=== PATIENT | female | born 1990 | race Caucasian/White ===

== ENCOUNTER → 2022-09-15 10:08 | Outpatient (CLI) | payer OTHER, SELFPAY ==
--- NOTE | 2022-09-15 | DI.US.S_ITS ---
PROCEDURE: US OB >= 14 WEEKS FETUS INDICATIONS: 20 week anatomy scan OUTSIDE/PRIOR DATING DATA: Last menstrual period (LMP): 04/30/22. LMP-based estimated date of delivery (GIORGIO): 02/04/23. First dating scan (date and location): None available. Estimated date of delivery (GIORGIO) from first dating scan: Not applicable. The calculations are made using the working GIORGIO of 02/04/23. TECHNIQUE: Real-time scanning was performed of the fetus, with image documentation and biometric measurements. Endovaginal scanning: Not performed COMPARISON: None. FINDINGS: General: A single living intrauterine gestation is present. Presentation: Vertex. Placenta: Placental position is posterior , and low lying. The placenta varies from a few mm to 1.1 cm from the internal cervical os. Amniotic fluid index: 8.6 cm, normal range is 5-24 cm. Single deepest vertical pocket is 2.3 cm. heart rate: 143 beats per minute. Maternal cervical canal: Closed and 3.9 cm long. Normal lower limit is 2.5 cm. biometrics: Biparietal diameter: 4.4 cm, 19 weeks two days Head circumference: 17.6 cm, 20 weeks 0 days Abdominal circumference: 14.5 cm, 19 weeks six days Femur length: 3.2 cm, 20 weeks one day Clinically estimated gestational age: 19 weeks five days Composite gestational age from present scan: 19 weeks six days Estimated weight and percentile: 322 g, 59th percentile Anatomic survey: Neuro: Ventricles are non-dilated at less than 10 mm. Cisterna magna is normal at 3-11 mm. Cerebellum is normal in size and morphology. Nuchal skin fold: Normal at less than 6 mm between 14-21 weeks gestational age. Face: Nose and lips, facial profile are normal. Spine: No evidence for spina bifida. Heart: 4-chambered heart is present, with normal ventricular outflow tracts. Diaphragm: Diaphragm is intact. Stomach: Left-sided stomach is present. Kidneys: No hydronephrosis. Normal is less than 5 mm in 2nd trimester, less than 7 mm in 3rd trimester. Cord: 3-vessel cord has orthotopic insertion. Bladder: Normal in size. Extremities: All 4 extremities identified. IMPRESSION: 1. Single live intrauterine with normal anatomy. 2. Symmetric and appropriate growth compared to clinical age. Estimated weight at the 59th percentile. 3. Posterior low-lying placenta. Follow-up in 3rd trimester is recommended. We strive to produce accurate, complete, and clear reports of imaging services. To assist us in improving patient care, this report was composed using standard report templates and voice recognition software. Therefore, it may contain abnormal punctuation, insertions and/or omissions. Occasional wrong-word or sound-alike substitutions may occur. Though we review the report and make efforts to correct it, we do recommend that the report be read carefully in proper context to recognize any text inaccuracies. Dictated by: Cuca Gomez M.D. on 09/15/2022 at 12:59 Approved by: Cuca Gomez M.D. on 09/15/2022 at 13:08
== END ==
PROVIDERS: Referring Provider Nurse Practitioner Obstetrics & Gynecology; Visit Provider Nurse Practitioner Obstetrics & Gynecology
DX: O44.42 Low lying placenta NOS or without hemorrhage, second trimester (principal); Z3A.19 19 weeks gestation of pregnancy
CPT/HCPCS: 76811

== ENCOUNTER → 2022-11-24 07:48 | Outpatient (CLI) | payer OTHER, SELFPAY ==
[2022-11-24 08:52] LABS: Glucose Fasting 90 mg/dL (70-100)
[2022-11-24 10:21] LABS: Glucose 1 Hour 122 mg/dL (70-170)
[2022-11-24 10:28] LABS: Glucose Tol Interpretation INTERPRETATION
[2022-11-24 11:20] LABS: Glucose 2 Hour 111 mg/dL (70-140)
== END ==
PROVIDERS: Referring Provider Advanced Practice Midwife; Visit Provider Advanced Practice Midwife
DX: O99.810 Abnormal glucose complicating pregnancy (principal)
CPT/HCPCS: 36415; 82951; 82952

== ENCOUNTER → 2022-12-22 09:40 | Outpatient (CLI) | payer OTHER, SELFPAY ==
--- NOTE | 2022-12-22 | DI.US.S_ITS ---
PROCEDURE: US OB LIMITED INDICATIONS: GROWTH AND PLACENTA LOCATION OUTSIDE/PRIOR DATING DATA: Last menstrual period (LMP): 04/30/2022. LMP-based estimated date of delivery (GIORGIO): 02/04/2023. TECHNIQUE: Real-time scanning was performed of the fetus, with image documentation and biometric measurements. Endovaginal scanning: Not performed COMPARISON: [facility], , OB >= 14 WEEKS FETUS, 09/15/2022, 10:22. FINDINGS: General: A single living intrauterine gestation is present. Presentation: Vertex. Placenta: Placental position is posterior. On documented images placental edge is difficult to identify. There is appearance of soft tissue interposed between calipers annotating possible placental edge and cervix area. Shadowing from anatomy present at the region labeled as suspected placental edge. Amniotic fluid index: 11.2 cm, normal range is 5-24 cm. Single deepest vertical pocket is 3.7 cm. heart rate: 145 beats per minute. Maternal cervical canal: 5.1 cm long. Normal lower limit is 2.5 cm. biometrics: Biparietal diameter: 8.3 cm 33 weeks 2 days Head circumference: 30.1 cm 33 weeks 3 days Abdominal circumference: 29.3 cm 33 weeks 2 days Femur length: 6.5 cm 33 weeks 2 days estimated gestational age: 33 weeks 5 days Composite gestational age from present scan: 33 weeks 2 days Estimated weight and percentile: 2174 g, 32nd percentile Other: Not applicable. IMPRESSION: 1. Single living intrauterine in vertex presentation. 2. Estimated weight at the 32nd percentile. 3. Placental edge difficult to identify on obtained images. Short interval follow-up recommended. We strive to produce accurate, complete, and clear reports of imaging services. To assist us in improving patient care, this report was composed using standard report templates and voice recognition software. Therefore, it may contain abnormal punctuation, insertions and/or omissions. Occasional wrong-word or sound-alike substitutions may occur. Though we review the report and make efforts to correct it, we do recommend that the report be read carefully in proper context to recognize any text inaccuracies. Dictated by: Arash Cosme M.D. on 12/22/2022 at 13:47 Approved by: Arash Cosme M.D. on 12/22/2022 at 13:59
== END ==
PROVIDERS: Referring Provider Advanced Practice Midwife; Visit Provider Advanced Practice Midwife
DX: O44.00 Complete placenta previa NOS or without hemorrhage, unspecified trimester (principal); Z3A.33 33 weeks gestation of pregnancy
CPT/HCPCS: 76815

== ENCOUNTER → 2023-01-05 08:49 | Outpatient (CLI) | payer OTHER, SELFPAY ==
--- NOTE | 2023-01-05 | DI.US.S_ITS ---
PROCEDURE: US OB FOLLOW UP INDICATIONS: PLACENTA LOCATION OUTSIDE/PRIOR DATING DATA: Last menstrual period (LMP): 04/30/22. LMP-based estimated date of delivery (GIORGIO): 02/04/23. First dating scan (date and location): Unknown. Estimated date of delivery (GIORGIO) from first dating scan: Not applicable. The calculations are made using the working GIORGIO of 02/04/23. TECHNIQUE: Real-time scanning was performed of the fetus, with image documentation. Endovaginal scanning: Not performed COMPARISON: None. FINDINGS: A single living intrauterine gestation is present. Presentation: Vertex Placenta: Placental position is posterior and fundal, without previa. Amniotic fluid index: 10.8 cm, normal range is 5-24 cm. Single deepest vertical pocket is 4.6 cm. heart rate: 126 beats per minute. Maternal cervical canal: Closed and 3.2 cm long. Normal lower limit is 2.5 cm. Clinically estimated gestational age: 35 weeks 5 days IMPRESSION: 1. Posterior placenta without previa on the given images. 2. Intrauterine in vertex presentation. 3. Closed cervix and normal amniotic fluid volume. Dictated by: Cuca Gomez M.D. on 01/05/2023 at 12:58 Approved by: Cuca Gomez M.D. on 01/05/2023 at 13:00
== END ==
PROVIDERS: Referring Provider Advanced Practice Midwife; Visit Provider Advanced Practice Midwife
DX: O44.03 Complete placenta previa NOS or without hemorrhage, third trimester (principal); Z3A.35 35 weeks gestation of pregnancy
CPT/HCPCS: 76816

== ENCOUNTER → 2023-01-28 19:45 | Outpatient (ROUT) | payer OTHER, SELFPAY ==
[2023-01-28 19:59] LABS: Hematocrit 39.9 % (36-46); Hemoglobin 13.4 g/dL (12.0-16.0); Mean Corpuscular HGB Conc 33.5 % (30-36); Mean Corpuscular Hemoglobin 30.7 PG (26-34); Mean Corpuscular Volume 91.4 fL (80-100); Platelet Count 208 X10^3/uL (150-400); Red Blood Cell Count 4.37 X10^6/uL (4.0-5.2); Red Cell Distribution Width 13.4 % (11.6-14.8); White Blood Cell Count 13.9 X10^3/uL (4.5-11.0)
[2023-01-28 20:16] LABS: Alanine Aminotransferase 23 IU/L (<35); Albumin 3.3 g/dL (3.5-5.0); Albumin Globulin Ratio 1.2 (1.0-2.8); Alkaline Phosphatase 152 U/L (38-126); Aspartate Aminotransferase 29 IU/L (14-36); Bilirubin Total 0.2 mg/dL (0.2-1.3); Blood Urea Nitrogen 11 mg/dL (7-17); Calcium 8.9 mg/dL (8.4-10.2); Carbon Dioxide 22 mmol/L (22-32); Chloride 103 mmol/L (98-107); Estimated Glomerular Filt Rate > 60 mL/min (>60); Globulin 2.8 g/dL (1.7-4.1); Glucose 53 mg/dL (70-100); HEMOLYSIS < 15 (0-50); Potassium 4.1 mmol/L (3.4-5.1); Sodium 135 mmol/L (137-145); Total Protein 6.1 g/dL (6.3-8.2); Uric Acid 5.4 mg/dL (2.5-6.2)
[2023-01-28 20:46] LABS: Creatinine Urine Random 119.4 mg/dL; Protein (Total) Urine Random 10 mg/dL (0-12); Protein Creatinine Ratio Urine 0.08 GRAM/24H
== END ==
PROVIDERS: Visit Provider Advanced Practice Midwife
DX: R03.0 Elevated blood-pressure reading, without diagnosis of hypertension (principal); Z34.93 Encounter for supervision of normal pregnancy, unspecified, third trimester
CPT/HCPCS: 80053; 82570; 84156; 84550; 85027

== ENCOUNTER → 2023-02-04 20:07 | Outpatient (ROUT) | payer OTHER, SELFPAY ==
[2023-02-04 20:25] LABS: Hematocrit 40.1 % (36-46); Hemoglobin 13.5 g/dL (12.0-16.0); Mean Corpuscular HGB Conc 33.7 % (30-36); Mean Corpuscular Hemoglobin 30.4 PG (26-34); Mean Corpuscular Volume 90.3 fL (80-100); Platelet Count 208 X10^3/uL (150-400); Red Blood Cell Count 4.44 X10^6/uL (4.0-5.2); White Blood Cell Count 15.8 X10^3/uL (4.5-11.0)
[2023-02-04 20:27] LABS: Add Manual Diff / Slide Review YES
[2023-02-04 20:28] LABS: Aspartate Aminotransferase 23 IU/L (14-36); BUN Creatinine Ratio 21.2 (6-22); Blood Urea Nitrogen 14 mg/dL (7-17); Estimated Glomerular Filt Rate > 60 mL/min (>60); Uric Acid 6.2 mg/dL (2.5-6.2)
[2023-02-04 20:57] LABS: Neutrophils Absolute Manual 13430 /uL (3000-5900); RBC Morphology Normal Morphology; Total Cells Counted 100
[2023-02-04 21:06] LABS: Creatinine Urine Random 222.8 mg/dL; Protein (Total) Urine Random 6 mg/dL (0-12); Protein Creatinine Ratio Urine 0.02 GRAM/24H
== END ==
PROVIDERS: Visit Provider Nurse Practitioner Obstetrics & Gynecology
DX: Z34.93 Encounter for supervision of normal pregnancy, unspecified, third trimester (principal); R03.0 Elevated blood-pressure reading, without diagnosis of hypertension
CPT/HCPCS: 82570; 84156; 84450; 84550; 85007; 85025

== ENCOUNTER 2023-02-05 07:17 | Inpatient (IN) | payer OTHER, SELFPAY ==
--- NOTE | 2023-02-05 | PATH_ITS ---
[facility] Accession Number: [id number] No. of containers..01 Tissue . 01 Material submitted: . placenta - PLACENTA . 01 Diagnosis: Placenta, Delivery: Mature george, partially fragmented placenta (348 grams). - Negative for villitis, thrombosis, infarction, and neoplasia. Eccentrically attached trivascular umbilical cord. - Negative for true knots, funisitis, and thrombosis. membranes negative for chorioamnionitis. MRV 02/16/2023 1710 Local . 01 Electronically signed: . Malathi Hensley MD, Pathologist NPI- [id number] . 01 Gross description: . The specimen is received in formalin labeled with the patient's name, , and no additional designation, and consists of an irregular-shaped george placenta with a trimmed weight of 348 g and measuring 19.4 x 15.3 x 1.4 cm with no accessory lobes identified. The membranes are mills and translucent with a slight green tint and no discoloration or thickening identified. They insert and are ruptured at the margin. The cord measures 71.8 cm in length by 1.2 cm in average diameter with a leftward coil and an index of approximately 1 twist per 5 cm. The cord inserts eccentrically 3.5 cm from the nearest placental disc edge. Sectioning reveals unremarkable trivascular architecture with no knots or lesions identified. The surface is blue-cardoza with a slight green tint, normal arborizing vasculature, and no discoloration or lesions identified. The maternal surface is ragged and grossly incomplete with the membranes visible from the maternal surface in an area measuring 3.5 x 2.2 cm. Several detached fragments of placenta are received within the container, aggregating to 5.3 x 4.1 x 2.0 cm. The presence of a complete maternal surface cannot be accurately determined. There are no lesions or discoloration identified. Sectioning reveals a pink-red, spongy cut surface with no discrete lesions or discoloration identified. [employer] sections are submitted as follows: A1: Membrane roll, placental end of cord, and central cord. A2: Membrane roll and end of cord. A3-A5: Central full-thickness plus normal sections. ([id number]) /FRR 02/07/2023 [facility] Local . 01 Pathologist provided ICD-10: O43.90 . 01 CPT . 172826 Specimen Comment: A courtesy copy of this report has been sent to [facility] Pathology Performed at: 01 [facility] [address] [place] [address], [place], [place] [id number] MD Gómez Kirkpatrick MD Phone: [phone]
[2023-02-05 07:36] VITALS: BP 140/83
--- NOTE | 2023-02-05 07:59 | P.HPOB_ITS ---
OB HPI Date/Time Date of admission: 02/05/23 Date Patient Seen: 02/05/23 Time Patient Seen: 07:30 History of Present Condition Chief complaint: induction : 1 Para: 0 Estimated Date of Delivery: 02/04/23 Estimated Gestational Age (weeks): 40.1 Narrative: Christopher Castillo is a 32 year old female at 40 weeks 1 day by sure LMP, concordant with 8 week US, here for IOL for gestational hypertension. She received uncomplicated care with CNM until diagnosis of gestational hypertension yesterday in clinic at 40 weeks 0 days. Serum labs and PCR were sent yesterday and are WNL. The hospital was not able to accommodate an induction yesterday due to staffing, however informed consent for IOL was obtained and a doll balloon was placed outpatient at 6pm 02/04/23. This morning Christopher reports feeling strong contractions for 2 hours overnight and then no more cramping. Upon admission, doll balloon sitting in vaginal vault. movement has been normal, she is having some bloody show, no leakage of fluids. She denies signs of pre-eclampsia with severe features; no headache, scotoma, RUQ or epigastric pain, N/V or new swelling. She is accompanied by her partner Rios. Indications Indication for induction OB: gestational HTN/pre-eclampsia History of Present care: good care, initiated at week # (8), number of visits (12) and pounds weight gain (29) Dating criteria: LMP confirmed by 1st trimester US Ultrasounds: normal 1st trimester US and normal mid trimester US Obstetrical complications: gestational hypertension Medical complications: none Preadmission Labs Blood type: A (+) positive -: Antibody screen: negative, GBS status: negative, HBsAG: negative, HIV: negative and RPR/VDLR: negative -: Chlamydia screen: not detected and Gonorrhea screen: not detected -: Rubella: immune and Varicella: immune HCT: 39.9 HCAB: negative PAP: Normal Cell-free DNA: Negative Narrative: 2hr glucose tolerance test: 90, 122, 111 Evaluation Evaluation Baseline heart rate: 130 Variability: Moderate (11-25) monitor accelerations: Present Monitor Decelerations: Absent Contraction Frequency (minutes): 0 Status: Category l Dilation (cm): 4.5 Effacement (%): 70 Dilation: 3-4 cm Effacement: 60-70% station: -3 Position of cervix: mid Consistency: soft Carrillo score: 7 PFSH Medical History Migraines Anxiety Depression Varicose veins of left calf Surgical History History of appendectomy Family History Mother Hypertension Depression Grandmother Cancer Grandfather Hypertension Father Depression Social History marital status: unmarried,living together household members: significant other occupational status: employed do you feel safe at home: Yes Smoking Status: Never smoker alcohol intake: former substance use type: does not use Meds Home Medications and Allergies Home Medications Medication Instructions Recorded Confirmed Type prenat.vits,kaitlin,noi-ncyr-pzbda 1 tab DAILY 02/05/23 02/05/23 History Allergies Allergy/AdvReac Type Severity Reaction Status Date / Time PENICILLIN Allergy Mild rash Uncoded 07/22/17 12:58 Review of Systems Review of Systems ROS: Yes All systems reviewed with the patient and are negative except as otherwise documented OB Exam Vital signs Blood Pressure: 140/83 Pulse Rate: 108 Temperature: 36.1 F Resp Effort & Inspection: normal respiratory effort Auscultation: clear to auscultation bilaterally Cardio Rate: regular rate Rhythm: regular rhythm Extremities DTR's: Rt Patellar: 3+ (No clonus) and Lt Patellar: 2+ (No clonus) Objective Labs 02/05/23 08:00 Labs: Pr:Cr- 0.02 AST- 23 Pre-E panel with Pr:Cr WNL yesterday (see preeclampsia panel in [employer] performed 02/04/23) Assessment and Plan Assessment and Plan Assessment and Plan narrative: A: Term nullipara Gestational hypertension IOL, cervix favorable for pitocin GBS prophylaxis NOT indicated Membranes intact FHR Cat 1 P: Admit to L&D Begin pitocin, per protocol Monitor BPs q2hrs Continuous monitoring Consulted Dr. Kelly, OB on-call; agrees with plan of care, will notify if BPs > or = 150s/100s or with any signs of Pre-E w/ SF Alternate rest and movement Next cervical exam after 2 hours of painful contractions
[2023-02-05 08:33] VITALS: BP 140/83; PULSE 108; TEMP 2.3; TEMP 36.1
[2023-02-05] MEDS: LACTATED RINGERS 1,000 ML 100 ML IV ×2 (08:40→13:35)
[2023-02-05 08:46] LABS: Add Manual Diff / Slide Review NO; Basophils Absolute Auto 0 /uL (0-100); Basophils Percent Auto 0.3 % (0-2); Eosinophils Absolute Auto 0 /uL (0-450); Eosinophils Percent Auto 0.3 % (2-4); Hematocrit 38.8 % (36-46); Hemoglobin 13.1 g/dL (12.0-16.0); Lymphocytes Absolute Auto 1400 /uL (1100-4500); Lymphocytes Percent Auto 10.1 % (25-40); Mean Corpuscular HGB Conc 33.9 % (30-36); Mean Corpuscular Hemoglobin 30.2 PG (26-34); Mean Corpuscular Volume 89.3 fL (80-100); Monocytes Absolute Auto 1200 /uL (0-900); Monocytes Percent Auto 8.2 % (3-14); Neutrophils Absolute Auto 11400 /uL (1500-7000); Neutrophils Percent Auto 81.1 % (50-75); Platelet Count 186 X10^3/uL (150-400); Red Blood Cell Count 4.35 X10^6/uL (4.0-5.2); Red Cell Distribution Width 13.7 % (11.6-14.8)
[2023-02-05] MEDS: OXYTOCIN PREMIX 30 UNIT/500 ML PLAST..BAG IV (09:01)
--- NOTE | 2023-02-05 12:03 | PM.OBPNLAB ---
Date/Time Date Patient Seen: 02/05/23 Time Patient Seen: 13:00 Pain Control Pain control: tolerating well Comments: VS - BP: 135/79mmHg, HR: 84 bpm, T: 36.2C, Sp02: 100% Christopher is moaning through strong, regular contractions. Has been laboring on hands and knees on the bed, leaning over the birthing ball, rocking and now on her side. Contractions got more intense around 11am with suspected SROM at 0845, clear fluid. Pitocin (max does 8mu/min) was decreased to 4mu/min for tachysystole and then turned off. Now requesting and epidural. CNM and student CNM have been providing continuous labor support. Pelvic Exam Dilation (cm): 6 Effacement (%): 80 station: -1 Amniotic membrane status: Ruptured (clear) Contractions Monitor mode: External Pitocin rate (mU/min): 0 Contraction frequency (min): 2 (1-3) Contraction duration (min): 1 Contraction pattern: Regular Contraction intensity: Moderate Status status: Category l Heart Rate Baseline: 125 Monitor Accelerations: Present Monitor Decelerations: Absent Monitor Variability: Moderate Assessment and Plan Assessment: induction ongoing Plan: continuous present management Comments: A: Term nullipara Gestational hypertension Active labor SROM Coping well FHR Cat 1 P: Epidural EDGAR Repeat CE after epidural placement and will consider restarting pitocin if indicated by contraction pattern. Reassess after epidural placement.
[2023-02-05] MEDS: ONDANSETRON 4 MG/2 ML INJ IV (13:23)
--- NOTE | 2023-02-05 13:50 | PM.ANES.PR ---
Operative Date/Time/Diagnoses Date of procedure: 02/05/23 Time of procedure: 13:24 Pre-op diagnosis: Labor pain Post-op diagnosis: same Note Patient is a requesting labor epidural for labor pain
--- NOTE | 2023-02-05 13:52 | PM.AN.REGBLK ---
[facility]ional [facility] Pre-procedure Procedure: Continuous Lumbar Epidural for L&D Attending OB provider: Francoise English PMH/ROS narrative: Patient is a requesting labor epidural for labor pain Hx: No personal or family history of anesthesia problems. Exam narrative: Mallampati: 2, good neck ROM ASA Class: II Labs: Hct 38.8 % (36-46) 02/05/23 08:00 Plt Count 186 X10^3/uL (150-400) 02/05/23 08:00 Medications: Current Medications Generic Name Dose Route Start Last Admin Trade Name Freq PRN Reason Stop Dose Admin Calcium Carbonate 1,000 mg 02/05/23 07:53 Calcium Carbonate 500 Mg Tab PO Q4HR PRN Dyspepsia Carboprost Tromethamine 250 mcg 02/05/23 07:53 Carboprost 250 Mcg/Ml Ampul IM Q90M PRN Bleeding Diphenhydramine HCl 25 mg 02/05/23 13:06 Diphenhydramine 50 Mg/Ml Vial IV Q10M PRN Pruritis Fentanyl 100 mcg 02/05/23 07:53 Fentanyl 100 Mcg/2 Ml Inj IV Q1H PRN Pain, Severe (7-10) Oxytocin/Lactated Ringer's 30 unit in 500 mls @ 200 mls/hr 02/05/23 07:53 Oxytocin Premix IV CONT PRN Bleeding Protocol Tranexamic Acid 1,000 mg/ 100 mls @ 200 mls/hr 02/05/23 07:53 Sodium Chloride IV NOW PRN Bleeding Oxytocin/Lactated Ringer's 30 unit in 500 mls @ 2 mls/hr 02/05/23 08:00 02/05/23 09:01 Oxytocin Premix IV 1 milliunit/min TITRATE IMTIAZ 1 mls/hr Administration Protocol 2 MILLIUNIT/MIN Lactated Ringer's 1,000 mls @ 100 mls/hr 02/05/23 08:00 02/05/23 13:35 Lactated Ringers IV 100 mls/hr CONT IMTIAZ Administration FENT 2MCG/ML BUPIV 0.1% EPI 200 mcg in 100 mls @ 6 mls/hr 02/05/23 13:15 Fentanyl/Bupiv/Ns 2mcg/Ml - 0.1% EPIDURAL CONT IMTIAZ Lidocaine HCl 20 ml 02/05/23 07:53 Lidocaine 1% 20 Ml INJ INTRA-OP PRN Post Delivery Methylergonovine Maleate 0.2 mg 02/05/23 07:53 Methylergonovine 0.2 Mg Tablet PO Q6HR PRN Heavy Bleeding Methylergonovine Maleate 0.2 mg 02/05/23 07:53 Methylergonovine 0.2 Mg/Ml Vial IM NOW PRN Bleeding Misoprostol 800 mcg 02/05/23 07:53 Misoprostol 200 Mcg Tablet UT NOW PRN Bleeding Misoprostol 400 mcg 02/05/23 07:53 Misoprostol 200 Mcg Tablet SL NOW PRN Bleeding Nalbuphine HCl 2.5 mg 02/05/23 13:06 Nalbuphine 20 Mg/Ml Ampul IV Q10M PRN Pruritis Naloxone HCl 0.2 mg 02/05/23 07:53 Naloxone 0.4 Mg/Ml Vial IV Q2MIN PRN Opiate Reversal Ondansetron HCl 4 mg 02/05/23 07:53 02/05/23 13:23 Ondansetron 4 Mg/2 Ml Inj IV 4 mg Q4HR PRN Administration Nausea And Vomiting Oxytocin 10 unit 02/05/23 07:53 Oxytocin 10 Unit/Ml Vial IM NOW PRN Bleeding Allergies: Allergies Allergy/AdvReac Type Severity Reaction Status Date / Time PENICILLIN Allergy Mild rash Uncoded 07/22/17 12:58 Procedure Insertion date: 02/05/23 Insertion time: 13:24 Prep/Local: 1% lidocaine (Sterile gloves, drape, prep with Chloroprep) Interspace: L4-5 Patient position: sitting Needle: 18 gauge Hustead Loss of resistance with: saline LOULOU at (cm): 6 Catheter placed at SKIN (cm): 11 Catheter in SPACE (cm): 5 Sensory level: T10 Insertion: No CSF, No Blood, No Paresthesia with insertion, No Paresthesia with injection and No Test dose reaction Initial Medications TEST DOSE time: 13:32 TEST DOSE: 1.5% lidocaine with epinephrine 1:200k (mL): 5 BOLUS DOSE time: 13:35 BOLUS DOSE (mL): 8 BOLUS DOSE med: 0.125% bupivacaine with fentanyl 10 mcg/mL (Clinician bolus from pump) Infusion INFUSION: 0.125% bupivacaine and with fentanyl 2 mcg/mL Initial rate (mL/hr): 10 Post-procedure Anesthesia time START: 13:24 Anesthesia time END: 17:42 Post-procedure Anesthesia Assessment: Yes CV function: HR/BP stable, Yes Resp function: RR/sat/airway adequate, Yes Post-op hydration adequate, Yes Pain control adequate, Yes Nausea & vomiting absent, Yes Temperature > 36 C and Yes Mental status appropriate
--- NOTE | 2023-02-05 15:37 | P.PN_ITS ---
Subjective Subjective Date Patient Seen: 02/05/23 Time Patient Seen: 15:24 Interval history: Pt reports ongoing sharp left-sided pain since epidural placement; able to move LLE with numb and minimally mobile RLE. Multiple calls from OB while all anesthesia providers were in the OR. Dr. Echavarria was able to assess pt at 14:50 and gave chloroprocaine 5-ml bolus. Pt's pain was unrelieved. I was able to come assess pt at 15:24. Continues to report severe left-sided pain with contractions and moans during contractions. Exam Vital Signs (past 8 hours): - 02/05/23 08:33 Temperature 36.1 F L Pulse Rate 108 H Blood Pressure 140/83 Objective Labs 02/05/23 08:00 Labs: Laboratory Results - last 24 hr 02/05/23 08:00 WBC 14.0 H RBC 4.35 Hgb 13.1 Hct 38.8 MCV 89.3 MCH 30.2 MCHC 33.9 RDW 13.7 Plt Count 186 Neut % (Auto) 81.1 H Lymph % (Auto) 10.1 L Foard % (Auto) 8.2 Eos % (Auto) 0.3 L Baso % (Auto) 0.3 Neut # (Auto) 38831 H Lymph # (Auto) 1400 Foard # (Auto) 1200 H Eos # (Auto) 0 Baso # (Auto) 0 Blood Type A Positive Antibody Screen Negative [facility] Medical History Migraines Anxiety Depression Varicose veins of left calf Surgical History History of appendectomy Family History Mother Hypertension Depression Grandmother Cancer Grandfather Hypertension Father Depression Social History marital status: unmarried,living together household members: significant other occupational status: employed do you feel safe at home: Yes Smoking Status: Never smoker alcohol intake: former substance use type: does not use Assessment & Plan Assessment & Plan narrative: Epidural with inadequate function. Pt's labor is progressing rapidly. Discussed with pt that I will pull the catheter back and bolus again. If that does not help, I can replace catheter if pt has not progressed to actively pushing. Pt voices agreement with plan. Under sterile conditions, epidural catheter pulled back to 11 cm and resecured. Bolus of Nesacaine 5 ml given at 15:30. 15:44 - Pt reports relief from bolus and is now actively pushing with contractions. Informed her that she is continuing to get the epidural infusion and can either bolus through that or I can return and give another bolus if needed prior to delivery. Pt and signal and communications maintainer Francoise agree with plan. Time Spent With Patient Time with patient: less than 30 minutes
[2023-02-05] MEDS: FENT 2MCG/ML BUPIV 0.1% EPI 200 MCG/100 ML PLAST..BAG 6 MCG EPIDURAL (16:51)
--- NOTE | 2023-02-05 18:01 | PM.OBPRVD ---
Events: Induced HTN Labor & Delivery Delivery date: 02/05/23 Cervical ripening method: per Woo bulb protocol Induction method: per pitocin protocol Delivery monitor: external FHT and external uterine Route of delivery: Episiotomy description: None L&D Laceration Description: Perineal - 1st Degree Delivery repair: chromic Quantitative Blood Loss: 150 Anesthesia Type: Epidural Complications: Retained placenta with manual removal Narrative: Christopher progressed to complete without additional pitocin augmentation. Inadequate pain relief despite multiple attempts to re-dose her epidural by anesthesia. She pushed for two hours and FHR was Category 1-2 with occasional variables throughout pushing. With Christopher pushing in a supine position, SNM, with CNM guidance, delivered a vigorous boy in KECIA position, with no nuchal cord, easy delivery of the shoulders, and copious terminal meconium. was placed on Christopher's abdomen where he was dried and stimulated. Apgars 8/9. 30mu Pitocin in 500mL LR started per protocol for AMSTL. After cord had stopped pulsing, SNM double clamped and FOB Rios cut the umbilical cord. Cord blood sample collected per hospital protocol. After 30 minutes of gentle cord traction, placenta remained attached with very minimal bleeding noted. Though original epidural remained in place and on, patient had full sensation in and around perineum. Anesthesia was called to bedside and spinal was administered with great effect to provide adequate anesthesia for removal of placenta. Dr. Kelly was notified when anesthesia was called, came to bedside once pain control was sufficient, and removed placenta manually; see her note for details of procedure. EBL was 150mL. A first degree laceration was noted and repaired with two interrupted stitches with 3-0 chromic suture. Woo catheter placed following repair given late spinal dose. Ceftriaxone 1g given. Placenta sent to pathology. Christopher and her baby Griffin were skin to skin, stable and working on as I left the room. Baby 1: Infant gender: Male Presentation: vertex Position: Right Occiput Anterior Placenta delivery description: Manual Removal Cord Vessel Description: 3 Vessels score (1 min): 8 score (5 min): 9 weight: 2.851 kg Plan for aftercare: Routine care
--- NOTE | 2023-02-05 18:54 | PM.AN.REGBLK ---
[facility] Pre-procedure PMH/ROS narrative: Pt delivered a baby boy via an epidural that was deemed barely adequate. After delivery, pt was noted to have a retained placenta. Spinal requested by nuisance animal damage control agent Francoise to allow for manual evacuation of retained placenta. Exam narrative: and pt appears relatively comfortable now. Otherwise unchanged. ASA Class: II Labs: Hct 38.8 % (36-46) 02/05/23 08:00 Plt Count 186 X10^3/uL (150-400) 02/05/23 08:00 Medications: Current Medications Generic Name Dose Route Start Last Admin Trade Name Freq PRN Reason Stop Dose Admin Acetaminophen 650 mg 02/05/23 18:33 Acetaminophen 325 Mg Tablet PO Q6HR PRN Pain, Mild (1-3) Benzocaine 1 spray 02/05/23 18:33 Dermoplast Bentley 20% 60 Ml TOP Q1HR PRN perineal pain Carboprost Tromethamine 250 mcg 02/05/23 18:33 Carboprost 250 Mcg/Ml Ampul IM Q90MIN PRN Bleeding Emollient Ointment 1 applic 02/05/23 18:33 Lanolin Oint 7 Gm TOP PRN PRN Tenderness Tranexamic Acid 1,000 mg/ 100 mls @ 200 mls/hr 02/05/23 18:33 Sodium Chloride IV NOW PRN Bleeding Oxytocin/Lactated Ringer's 30 unit in 500 mls @ 200 mls/hr 02/05/23 18:33 Oxytocin Premix IV CONT PRN Bleeding Protocol Ibuprofen 600 mg 02/06/23 00:30 Ibuprofen 600 Mg Tablet PO Q6HR PRN Pain, Mild (1-3) Methylergonovine Maleate 0.2 mg 02/05/23 18:33 Methylergonovine 0.2 Mg/Ml Vial IM NOW PRN Bleeding Methylergonovine Maleate 0.2 mg 02/05/23 18:33 Methylergonovine 0.2 Mg Tablet PO Q6HR PRN Heavy bleeding Misoprostol 400 mcg 02/05/23 18:33 Misoprostol 200 Mcg Tablet SL NOW PRN Bleeding Misoprostol 1,000 mcg 02/05/23 18:33 Misoprostol 200 Mcg Tablet IL NOW PRN Bleeding Misoprostol 800 mcg 02/05/23 18:33 Misoprostol 200 Mcg Tablet IL NOW PRN Bleeding Naloxone HCl 0.2 mg 02/05/23 18:33 Naloxone 0.4 Mg/Ml Vial IV Q2MIN PRN Opiate Reversal Oxycodone HCl 5 mg 02/05/23 18:33 Oxycodone Ir 5 Mg Tablet PO Q4HR PRN Pain, Moderate (4-6) Oxytocin 10 unit 02/05/23 18:33 Oxytocin 10 Unit/Ml Vial IM NOW PRN Bleeding Rho Immune Globulin 1,500 unit 02/05/23 18:33 Rho(D) Immune Globulin 1,500 Unit Syringe IM NOW PRN Mom Rh neg, Infant Rh pos Allergies: Allergies Allergy/AdvReac Type Severity Reaction Status Date / Time Penicillins Allergy Mild Rash Verified 02/05/23 18:41 --: Procedure Note: Pt positioned sitting. Epidural catheter removed along with dressing. Time-out 18:35 Sterile prep and drape. Lidocaine 1% skin wheal at L3-4. Introducer placed. Malissa 25g spinal needle placed with return of CSF. Bupivacaine 8.25% 1.6 ml instilled intrathecally. Pt tolerated procedure well. At 18:50, loss of temperature sensation in RLE, LLE, and L abdomen. Awaiting additional time for spinal to take effect but progressing well. OB physician was able to evacuate the placenta. Checked on pt at 19:04, and she reported complete pain relief, inability to move BLE. Procedure Insertion date: 02/05/23 Insertion time: 18:43 Prep/Local: 1% lidocaine Interspace: L3-4 Patient position: sitting Insertion: Yes CSF Post-procedure Anesthesia time START: 18:30 Anesthesia time END: 19:05 Post-procedure Anesthesia Assessment: Yes CV function: HR/BP stable, Yes Resp function: RR/sat/airway adequate, Yes Post-op hydration adequate, Yes Pain control adequate, Yes Nausea & vomiting absent, Yes Temperature > 36 C, Yes Mental status appropriate and Yes Anesthesia complications (None )
--- NOTE | 2023-02-05 19:01 | P.PN_ITS ---
Subjective Subjective Date Patient Seen: 02/05/23 Time Patient Seen: 19:02 Exam Vital Signs (past 8 hours): 140/83 HR 108 Const General: cooperative Resp Effort & Inspection: normal respiratory effort Objective Labs 02/05/23 08:00 Labs: Laboratory Results - last 24 hr 02/05/23 08:00 WBC 14.0 H RBC 4.35 Hgb 13.1 Hct 38.8 MCV 89.3 MCH 30.2 MCHC 33.9 RDW 13.7 Plt Count 186 Neut % (Auto) 81.1 H Lymph % (Auto) 10.1 L [place] % (Auto) 8.2 Eos % (Auto) 0.3 L Baso % (Auto) 0.3 Neut # (Auto) 90380 H Lymph # (Auto) 1400 [place] # (Auto) 1200 H Eos # (Auto) 0 Baso # (Auto) 0 Blood Type A Positive Antibody Screen Negative [facility] Medical History Migraines Anxiety Depression Varicose veins of left calf Surgical History History of appendectomy Family History Mother Hypertension Depression Grandmother Cancer Grandfather Hypertension Father Depression Social History marital status: unmarried,living together household members: significant other occupational status: employed do you feel safe at home: Yes Smoking Status: Never smoker alcohol intake: former substance use type: does not use Assessment & Plan Assessment and plan (1) Retained placenta or membranes without haemorrhage: Status: Acute (2) Gestational hypertension: Qualifiers: Trimester: third trimester Qualified Code(s): O13.3 - Gestational [-induced] hypertension without significant proteinuria, third trimester Status: Acute Plan Asked to evaluate patient for retained placenta. 1742, placenta delivered ~1900. Patient was uncomfortable with minimal relief from epidural so a spinal was placed. Umbilical cord followed and placenta palpated inside cervix. Placenta grasped, mildly adherent but removed intact with minimal bleeding. Patient tolerated well. Recommend ceftriaxone 1g x1 dose. Also CBC, CMP in am due to GHTN. Time Spent With Patient Time with patient: less than 30 minutes
[2023-02-05] MEDS: cefTRIAXone 1,000 MG in SODIUM CHLORIDE 0.9% 100 ML 200 MG IV (20:49)
[2023-02-06] MEDS: KETOROLAC 30 MG/ML VIAL IV (02:13)
[2023-02-06] MEDS: LANOLIN OINT 7 GM 1 APPLIC TOP (06:35)
[2023-02-06] MEDS: DERMOPLAST SPRAY 20% 60 ML 1 SPRAY TOP (06:35)
[2023-02-06] MEDS: ACETAMINOPHEN 325 MG TABLET 650 MG PO ×2 (06:36→13:30)
[2023-02-06] MEDS: IBUPROFEN 600 MG TABLET PO (09:06)
--- NOTE | 2023-02-06 12:33 | PM.OBDS.1 ---
Discharge Providers Provider Date of admission: 02/05/23 07:17 Discharge Date: 02/06/23 Primary care physician: EDVIN Xie Consults: 02/06/23 17:57 Consult to Fruit Farmer Routine Comment: Discharge provider: Francoise English CNM Summary Hospital Course Date Patient Seen: 02/06/23 Time Patient Seen: 12:33 Diagnoses: O70.0, O73.0 Hospital Course: PPD1: Stable s/p NSVB with retained placenta without hemorrhage. Voiding, ambulating and independently. Tolerating a general diet. Pain is well controlled with PO medication. A single does of antibiotics were administered last night for manual removal of retained placenta. Vaginal bleeding has been light, without clots. Peripartum Data Delivery Method: Natural Vaginal Laceration Description: Perineal - 1st Degree Episiotomy description: None Procedures: IOL, NSVB, manual removal of retained placenta complications: retained placenta [place] 1: Gender: Male Discharge Diagnosis (1) Retained placenta or membranes without haemorrhage: Status: Acute (2) Gestational hypertension: Status: Acute Status at Discharge Cognitive/behavioral status at discharge: oriented and calm Functional status at discharge: independent ambulation Overall status at discharge: patient is progressing back to baseline Time Spent with Patient Time attestation: Total time spent providing and/or coordinating discharge services: Objective Labs 02/05/23 08:00 Exam Vital Signs (past 8 hours): BP 132/79 (normotensive since delivery), HR 101bpm, RR 15/min, T 98.3F Temporal, SpO2- 100% Other: Fundus firm @ u-1, lochia small without clots. Perineum well approximated with slight edema. Discharge Plan Discharge Plan Patient Disposition: Home Discharge orders & Medications Prescriptions: New ibuprofen 600 mg Tablet 600 mg PO Q6HR PRN (Reason: Pain, Mild (1-3)) 14 Days Qty: 60 0RF Continued Vitamin Tablet 1 tab DAILY Follow up/Referrals: Francoise English CNM [[employer]] - (BP check in office 02/10/23 @ 10:30am 2wk phone call 02/17/23 @ 4pm 6 week appointment in office 03/20/23 @ 10:30am) Diet/Activity/Treatments Diet: Diet as Tolerated and Regular Activity: pelvic rest x 6 weeks Skin/Wound/Dressing Care Report to your healthcare provider any signs of infection, such as:: chills, fever, increased pain, unusual drainage and unusual redness Visit Report/Discharge Packet Instructions: DI for Depression Stand Alone Forms: Patient Portal/API, Stroke Signs & Symptoms
[2023-02-06 13:15] VITALS: BP 130/82; PULSE 81; RESP 16; TEMP 37.2
== END 2023-02-06 16:00 | disposition home or self-care (01) | DRG 807 ==
PROVIDERS: Admitting Provider Nurse Practitioner Obstetrics & Gynecology; Referring Provider Nurse Practitioner Obstetrics & Gynecology; Visit Provider Nurse Practitioner Obstetrics & Gynecology
DX: O13.4 Gestational [pregnancy-induced] hypertension without significant proteinuria, complicating childbirth (principal); Z37.0 Single live birth; Z3A.40 40 weeks gestation of pregnancy; O70.0 First degree perineal laceration during delivery; O73.0 Retained placenta without hemorrhage; Z34.93 Encounter for supervision of normal pregnancy, unspecified, third trimester
CPT/HCPCS: 36415; 59050; 82570; 84156; 84450; 84550; 85007; 85025; 86850; 86900; 86901; G0379; J0696; J1885; J2405; J2590

== ENCOUNTER → 2023-02-13 18:05 | Outpatient (ROUT) | payer OTHER, SELFPAY ==
[2023-02-13 18:14] LABS: Hematocrit 40.8 % (36-46); Hemoglobin 13.7 g/dL (12.0-16.0); Mean Corpuscular HGB Conc 33.6 % (30-36); Mean Corpuscular Hemoglobin 30.8 PG (26-34); Mean Corpuscular Volume 91.6 fL (80-100); Platelet Count 288 X10^3/uL (150-400); Red Blood Cell Count 4.46 X10^6/uL (4.0-5.2); Red Cell Distribution Width 13.8 % (11.6-14.8); White Blood Cell Count 9.4 X10^3/uL (4.5-11.0)
[2023-02-13 18:24] LABS: Alanine Aminotransferase 33 IU/L (<35); Albumin 3.8 g/dL (3.5-5.0); Albumin Globulin Ratio 1.4 (1.0-2.8); Alkaline Phosphatase 100 U/L (38-126); Aspartate Aminotransferase 28 IU/L (14-36); BUN Creatinine Ratio 25.4 (6-22); Bilirubin Total 0.2 mg/dL (0.2-1.3); Blood Urea Nitrogen 18 mg/dL (7-17); Calcium 9.3 mg/dL (8.4-10.2); Carbon Dioxide 23 mmol/L (22-32); Chloride 105 mmol/L (98-107); Estimated Glomerular Filt Rate > 60 mL/min (>60); Globulin 2.8 g/dL (1.7-4.1); Glucose 76 mg/dL (70-100); HEMOLYSIS < 15 (0-50); Potassium 4.8 mmol/L (3.4-5.1); Sodium 135 mmol/L (137-145); Total Protein 6.6 g/dL (6.3-8.2)
== END ==
PROVIDERS: Visit Provider Advanced Practice Midwife
DX: Z39.1 Encounter for care and examination of lactating mother (principal); O13.9 Gestational [pregnancy-induced] hypertension without significant proteinuria, unspecified trimester
CPT/HCPCS: 80053; 85027